=== PATIENT | female | born 1965 | race Caucasian/White ===

== ENCOUNTER 2019-01-17 11:37 | Emergency (ER) | payer MEDICAID ==
[~2019-01-17] VITALS: Ht 162.6 cm; Wt 71.8 kg
[~2019-01-17 11:37] MED LIST: ASPI-825 PO; HYDR25TA PO; LEVO250S PO; LISI40TA4 PO; PANT40TA25 PO
[2019-01-17 11:49] LABS: GLUCOSE,POINT OF CARE 310 MG/DL (70-110)
[2019-01-17] MEDS ORDERED: PIOG30TA10 PO (12:00)
[2019-01-17] MEDS ORDERED: HYDR-4031 PO (12:00)
[2019-01-17] MEDS ORDERED: LISI-661 PO (12:00)
[2019-01-17] MEDS ORDERED: GABA-531 PO (12:00)
[2019-01-17] MEDS ORDERED: GLIP10 PO (12:00)
[2019-01-17] MEDS ORDERED: METF-960 PO (12:00)
[2019-01-17] MEDS ORDERED: MOME13HF IH (12:00)
[2019-01-17] MEDS ORDERED: ALBU8HFA IH (12:00)
[2019-01-17] MEDS ORDERED: LORA10TA7 PO (12:00)
[2019-01-17] MEDS ORDERED: DOCU250C91 PO (12:00)
[2019-01-17] MEDS ORDERED: ESOM20CA31 PO (12:00)
[2019-01-17] MEDS ORDERED: ATOR20TA86 PO (12:00)
[2019-01-17] MEDS ORDERED: PredniSONE 20 MG TABLET PO ONE (12:30)
[2019-01-17] MEDS ORDERED: DiphenhydrAMINE HCL 25 MG CAPSULE PO ONE (12:30)
[2019-01-17] MEDS ORDERED: FAMOTIDINE 20 MG TABLET PO ONE (12:30)
[2019-01-17] MEDS ORDERED: LIDOCAINE/PF 1% 2 ML VIAL IM ONE (12:30)
[2019-01-17] MEDS ORDERED: CefTRIAXone SODIUM 1 GM/VIAL IM ONE (12:30)
[2019-01-17 13:00] VITALS: BP 129/85
== END 2019-01-17 13:08 | disposition home or self-care (01) ==
LOC: EMS 11:37
DX: T78.40XA Allergy, unspecified, initial encounter (principal); H57.89 Other specified disorders of eye and adnexa; I10 Essential (primary) hypertension; E11.9 Type 2 diabetes mellitus without complications; E78.00 Pure hypercholesterolemia, unspecified; J45.909 Unspecified asthma, uncomplicated; Z79.84 Long term (current) use of oral hypoglycemic drugs; Z79.899 Other long term (current) drug therapy; X58.XXXA Exposure to other specified factors, initial encounter
CPT/HCPCS: 82962; 96372; 99284; J0696; J3490; J7512